=== PATIENT | female | born 1965 | race American Indian/Alaskan Native ===

== ENCOUNTER 2017-02-05 09:17 | Outpatient (CLI) | payer BC ==
[2017-02-05 12:59] LABS: Basophils % (Auto) 0.8 % (0.0-1.8); Eosinophils % (Auto) 2.9 % (0.0-4.3); Hematocrit 43.4 % (30.3-42.9); Hemoglobin 14.2 gm/dl (10.1-14.3); Mean Corpuscular HGB Conc 33 % (30-34); Mean Corpuscular Hemoglobin 28 pg (28-32); Mean Corpuscular Volume 86 fl (79-97); Platelet Count 254 K/mm3 (140-440); Red Blood Count 5.03 M/mm3 (3.65-5.03); Red Cell Distribution Width 14.6 % (13.2-15.2); White Blood Count 4.3 K/mm3 (4.5-11.0)
[2017-02-05 13:25] LABS: Alanine Aminotransferase 22 units/L (7-56); Albumin 4.2 g/dL (3.9-5); Albumin/Globulin Ratio 1.3 %; Alkaline Phosphatase 80 units/L (35-129); BUN/Creatinine Ratio 22.85; Blood Urea Nitrogen 16 mg/dL (7-17); Carbon Dioxide 24 mmol/L (22-30); Cholesterol 201 mg/dL (50-199); Glucose 84 mg/dL (65-100); HDL Cholesterol 62 mg/dL (40-59); LDL Cholesterol,Direct 125 mg/dL (50-130); Total Protein 7.5 g/dL (6.3-8.2); Triglycerides 72 mg/dL (2-149); Uric Acid 4.7 mg/dL (3.5-7.6)
[2017-02-05 13:26] LABS: Anion Gap 19 mmol/L; Chloride 102.3 mmol/L (98-107); Potassium 4.1 mmol/L (3.6-5.0); Sodium 141 mmol/L (137-145)
[2017-02-07 18:34] LABS: Vitamin D, 25-OH, Total 27 ng/mL (30-100)
== END 2017-02-05 09:18 | disposition home or self-care (01) ==
LOC: LABHHL 09:17
PROVIDERS: ATTEND Internal Medicine
DX: I10 Essential (primary) hypertension (principal); Z79.899 Other long term (current) drug therapy
CPT/HCPCS: 36415; 80053; 80061; 82306; 82607; 83036; 84443; 84550; 85025